=== PATIENT | female | born 1990 | race Two or more races ===

== ENCOUNTER 2025-03-13 18:51 | Day surgery (SDC) | payer BC, SELFPAY ==
[2025-03-13] VITALS (7 sets, daily range): BP systolic 111–165; BP diastolic 74–117
--- NOTE | 2025-03-13 13:43 | ED.GENMED ---
History of Present Illness
General
Chief Complaint: Abdominal Symptoms
Source: patient
Exam Limitations: none
Time Seen by Provider: 03/13/25 13:36
History of Present Illness
History of Present Illness:
34-year-old female right lower quadrant pain gradual in onset starting last evening. Initially started off vague now more right lower quadrant. No fever or chills. No nausea or vomiting. No dysuria or frequency. She is somewhat beyond midcycle
for her menses. No history of similar pain. Pain has eased off mildly since this morning
Past History
Past History
ED Past Medical History: Asthma
ED Past Surgical History: Other (Eye surgery)
Review of Systems
Review of Systems
All Other Systems: Not applicable
Constitutional: Denies fever
ABD/GI: Denies diarrhea
: Reports no symptoms
Phy Exam
Physical Exam
Physical Exam:
GENERAL: Alert and oriented in no apparent distress
EYE: Orbits normal. Strabismus
NECK: Supple
CARDIAC: Regular rate and rhythm without any obvious murmurs.
LUNGS: Clear breath sounds,normal
ABDOMEN: Soft, no distention. Bowel sounds present. Mild tenderness right lower quadrant and slightly increased more towards the right pelvis. No rebound or guarding no mass or hernia. No CVA tenderness
NEUROLOGICAL: Alert and oriented , grossly non-focal
SKIN: Warm and dry, no rash or lesion, no discoloration, skin intact.
MUSCULOSKELETAL: No edema,no deformity.Good color
PSYCH: Normal and appropriate interaction.
Course
Orders/Labs/Results
Orders:
Orders
03/13/25 13:42
IV Insert/Care/Rem.- Treatment PRN
0.9% Sodium Chloride 500 ml [Nss] 500 ml IV BOLUS
Iohexol [Omnipaque] See Protocol PO NOW STA
Test Result ONCE
03/13/25 13:43
CT Abd/pel W Iv And Oral Contr Urgent
Comment:
Reason For Exam: Right lower quadrant pain
US Abdomen - Appendix Only Urgent
Comment:
Reason For Exam: Right lower quadrant/pelvic pain
US Pelvis W Transvag Combined Urgent
Reason For Exam: Right lower quadrant/pelvic pain
03/13/25 13:47
Complete Blood Count/With Diff Urgent
Comprehensive Metabolic Panel Urgent
HCG, Serum Qualitative Screen Urgent
Lipase Urgent
03/13/25 16:31
Urinalysis Reflex To Culture Urgent
Date Specimen was Collected: 03/13/25
Time Specimen was Collected: 16:27
03/13/25 17:02
Ketorolac [Toradol] 15 mg IV NOW STA
03/13/25 17:15
Dexamethasone Sod Phosphate [Decadron] 20 mg .ROUTE .STK-MED ONE
Fentanyl Citrate/Pf [Sublimaze] 100 mcg .ROUTE .STK-MED ONE
Lidocaine 2% Mpf [Xylocaine Mpf 2%] 100 mg .ROUTE .STK-MED ONE
Midazolam HCl [Versed] 2 mg .ROUTE .STK-MED ONE
Ondansetron Injectable [Zofran] 4 mg .ROUTE .STK-MED ONE
Propofol [Diprivan] 20 ml .ROUTE .STK-MED
Rocuronium [place] [Rocuronium] 50 mg .ROUTE .STK-MED ONE
03/13/25 17:23
Bupivacaine 0.25%Pf/Epinephrin [Sensorcaine-Epi 0.25%-0.0005] 30 ml .ROUTE .STK-MED ONE
03/13/25 17:30
Fentanyl Citrate/Pf [Sublimaze] 25 mcg IV [id number] PRN
HYDROmorphone [Dilaudid] 0.25 mg IV [id number] PRN
HYDROmorphone [Dilaudid] 0.5 mg IV PACU-Q5MPRN PRN
Labetalol HCl [Trandate] 5 mg IV [id number] PRN
Normosol (Mult Electrolytes) [Normosol-R/Plasmalyte-A] 1,000 ml IV PER PROTOCOL
Ondansetron Injectable [Zofran] 4 mg IV PACU-ONCEPRN PRN
Prochlorperazine [Compazine] 5 mg IV PACU-ONCEPRN PRN
Notify MD As Directed
Notify physician if: for SDS patients with known or suspected sleep obstructive sleep apnea, monitor in the
PACU.
Notify MD for any apneic/desaturation episodes
O2 Therapy [RESP] Urgent
Titrate/Wean O2 to maintain O2 sat greater than (%): 92
Special Instructions: -Provide supplemental oxygen to achieve O2 sat of 92% or greater.
-After 15 min, may wean O2 and discontinue if patient is able to maintain O2 sat of 92%
or greater during recovery period.
If patient is a discharge home, without oxygen therapy, notify anestheiologist if
unable to maintain O2 SAT of 92% or greater on room air for MD clearance.
Abnormal Lab Results
03/13/25 03/13/25
13:47 16:31
Absolute Neuts (auto) 7.8 H 10^3/uL
(1.4-6.5)
Glucose 111 H mg/dl
(70-99)
Urine Ketones 1+ A
(Negative)
03/13/25 13:47
03/13/25 13:47
Vital Signs
Initial and Last Documented VS:
Initial Vital Signs
Temp Pulse Resp BP Pulse Ox
98.4 F 118 20 162/106 95
03/13/25 13:22 03/13/25 13:22 03/13/25 13:22 03/13/25 13:22 03/13/25 13:22
Last Documented Vital Signs
Temp Pulse Resp BP Pulse Ox
99.7 F 112 18 165/117 99
03/13/25 16:35 03/13/25 16:35 03/13/25 16:35 03/13/25 16:35 03/13/25 16:35
MDM/Problems Addressed
Differential Diagnosis Includes:
Differential would include appendicitis, ovarian issue/ruptured cyst. Doubt torsion. Atypical diverticulitis. Kidney stone. Workup in progress
*Radiology
Radiology exam reviewed: radiology read reviewed (Ultrasounds negative. Acute appendicitis)
*Pulse Oximetry
SaO2: 95
Oxygen Mode of Delivery: Room air
Patient hypoxic: no
*Critical Care Note
Total Time (30-74mins, 75-104mins- exclusive of procedures): Not Applicable
Data Reviewed
Review of Other/Old Records Reveals: Labs and Testing
ED Attending Note
-
Portions of this chart may have been created with voice recognition software.� Occasional wrong word or��sound alike� substitutions may have occurred due to the inherent limitations of voice recognition software.
Discharge Plan
Departure
Patient Disposition: Admit
Date of Disposition: 03/13/25
Time of Disposition: 17:06
Presentation/result/management discussed w/ accepting MD/DO: General surgery
Discharge Problem:
Acute appendicitis
Prescriptions:
No Action
[id number] 1 mg Tablet
1 tab PO DAILY
Referrals:
Janet Bautista PA [Family Provider, Family Practice]
Interventions
Interventions:
*Risk Screen - Suicide Last Done: 03/13/25 13:22
*General Assessment Last Done: 03/13/25 13:22
DW-Fxlgey-Byilywnegi Assessment Last Done: 03/13/25 13:56
Discharge Date and Time
Print Language: KOREAN
[2025-03-13] MEDS: OMNIPAQUE 50 ML PO (13:54)
[2025-03-13] MEDS: NSS 500 IV (13:55)
[2025-03-13 13:57] LABS: Hematocrit 42.8 % (37.0-47.0); Hemoglobin 15.3 g/dL (12.0-16.0); Mean Corp Hgb Conc. 35.7 g/dL (33.0-37.0); Mean Corpuscular Volume 86.3 fL (81.0-99.0); Nucleated Red Blood Cells % 0 %; Platelet Count 242 10^3/uL (130-400); Red Cell Dist. Width 12.1 % (11.5-14.5)
[2025-03-13 14:16] LABS: ALT (SGPT) 21 U/L (0-35); AST (SGOT) 19 U/L (14-36); Albumin 4.8 g/dl (3.5-5.0); Alkaline Phosphatase 69 U/L (38-126); Blood Urea Nitrogen 7 mg/dl (7-17); Calcium 9.5 mg/dl (8.4-10.2); Carbon Dioxide 24 mmol/L (22-30); Chloride 105 mmol/L (98-107); Glucose 111 mg/dl (70-99); Lipase 40 U/L (23-300); Potassium 4.0 mmol/L (3.5-5.1); Sodium 138 mmol/L (135-145); Total Protein 7.6 g/dl (6.3-8.2); eGFR > 60.00
[2025-03-13 14:40] LABS: HCG, Serum Qualitative Screen Negative
[2025-03-13 16:42] LABS: Urine Character Clear (Clear)
[2025-03-13] MEDS: TORADOL 15 MG IV (17:04)
--- NOTE | 2025-03-13 17:45 | W.SUR.PREOP ---
Pre-Operative Surgical Note
-
I have examined this patient prior to the performance of the scheduled procedure.
The patient's condition is unchanged from the time of the current History and
Physical and the patient is able to undergo the scheduled procedure.
--- NOTE | 2025-03-13 17:46 | HPS.HSE ---
Family Physician
-
Family Physician: Janet Bautista
Chief Complaint
-
RLQ abdominal pain
History of Present Illness
Patient is a 34 yo F with a PMH of anxiety who presents with 12 hours of RLQ abdominal pain. Mr. Yoon states that her discomfort began yesterday evening. Symptoms began acutely and have persisted since that time. She describes pain in her
RLQ/pelvic region. No nausea or vomiting. No fevers or chills. No fluctuations in GI function. No prior colonoscopies.
Medical History
Past Medical History
Past Medical History: Reports Psychiatric (Anxiety)
Past Surgical History: Reports None
Social History
Tobacco: Non-smoker
Alcohol: None
Drug: None
Family History
Family History: Not pertinent
Allergies / Home Medications
Allergies reflects when Allergies were last updated in [facility].
Home Medications with original date entered in [facility]
Allergy/Medication List:
NKDA
Review of Systems
-
A 12 point ROS was completed and negative except as noted: Yes
Physical Exam
Vital Signs
Vital Signs
Temp Pulse Resp BP Pulse Ox
99.7 F 112 18 165/117 99
03/13/25 16:35 03/13/25 16:35 03/13/25 16:35 03/13/25 16:35 03/13/25 16:35
Physical Exam
General: Well Developed, Well Nourished and No Apparent Distress
HEENT: NormoCephalic and Anicteric
Respiratory: Non Labored Respirations
Cardiac: Regular Rhythm
GI: Soft, Non Distended, Tender (Mild RLQ) and Other (Non-peritoneal)
Musculoskeletal: No Edema
Skin: Warm and Dry
Neuro: Nonfocal/grossly intact
Laboratory Results
-
03/13/25 13:47
03/13/25 13:47
Laboratory Results
Total Bilirubin 1.2 mg/dl (0.2-1.3) 03/13/25 13:47
AST 19 U/L (14-36) 03/13/25 13:47
ALT 21 U/L (0-35) 03/13/25 13:47
Alkaline Phosphatase 69 U/L (38-126) 03/13/25 13:47
Lipase 40 U/L (23-300) 03/13/25 13:47
Data Reviewed
-
CT Scan: Image Personally Visualized and interpreted and Report Reviewed by me
Lab Data: Labs Reviewed by me
Impression/Plan
-
IMPRESSION:
Patient is a 34 yo F p/w acute appendicitis
Natural history and pathophysiology of appendicitis was briefly discussed. Anatomy was reviewed. CT scan imaging as it relates to her appendix was reviewed. Options for management including medical management with antibiotics versus surgical
management with appendectomy were considered and discussed. The pros and cons of both approaches was discussed. Specifically, we discussed failure of medical management and future episodes of appendicitis versus surgical risks.
Plan for a laparoscopic appendectomy. The procedure itself, as well as the risks, benefits, and alternatives was discussed. Specifically, we discussed the risks of bleeding, infection, injury to surrounding structures (bowel, bladder), staple line
leak, need for open procedure. Typical postprocedure recovery was discussed. All questions answered. Consent signed.
PLAN:
-- Laparoscopic appendectomy
-- NPO, IVF
-- Antibiotics: Zosyn
-- Dispo pending operative findings and recovery
--- NOTE | 2025-03-13 18:54 | W.IMMPOSTOP ---
Surgical Immed Post Op Note
-
Primary Surgeon: Sosa
Assisting Surgeon: None
Pre-op Diagnosis: Acute appendicitis
Post-op Diagnosis: Acute appendicitis
Procedure Performed: Laparoscopic appendectomy
Anesthesia Type: General
Specimen / Cultures:
1. Appendix
Estimated Blood Loss: 3 cc
Complications: None
Operative Findings:
1. Acutely inflamed, dilated appendix, reactive fluid
2. Mesentery taken with Ligasure, base with carbajal load stapler
== END 2025-03-13 19:50 | disposition home or self-care (01) ==
LOC: SDS 18:51
PROVIDERS: ATTENDING PHYSICIAN Surgery; EMERGENCY PHYSICIAN Emergency Medicine; FAMILY PHYSICIAN Physician Assistant Medical
DX: K35.80 Unspecified acute appendicitis (principal)
CPT/HCPCS: 44970; 74177; 76705; 76830; 76856; 80053; 81003; 83690; 84703; 85025; 88304; 96361; 96374; 99285; Q9967